=== PATIENT | female | born 1985 | race Two or more races ===

== ENCOUNTER → 2017-05-29 | Emergency (ER) | payer OTHER ==
[~2017-05-29] VITALS: Ht 170.2 cm; Wt 67.1 kg
[~2017-05-29] MED LIST: CLONAZEPAM2 MG PO; GARAMYCIN OPHT3.5 GM OP; HM EYE DROPS RE15 ML OP; METOPROLOL SUCC50 MG PO
== END | disposition home or self-care (01) ==
LOC: ER 01:50
DX: H18.821 Corneal disorder due to contact lens, right eye (principal)

== ENCOUNTER 2018-03-21 05:22 | Emergency (ER) | payer OTHER ==
[~2018-03-21] VITALS: Ht 170.2 cm; Wt 68.0 kg
[2018-03-21] MEDS ORDERED: CAPACET CAPSUL1 EACH PO (07:51)
== END 2018-03-21 08:06 | disposition home or self-care (01) ==
LOC: ER 05:22
DX: S00.83XA Contusion of other part of head, initial encounter (principal); W18.09XA Striking against other object with subsequent fall, initial encounter; Y93.89 Activity, other specified; Y92.098 Other place in other non-institutional residence as the place of occurrence of the external cause; Y99.8 Other external cause status; G44.209 Tension-type headache, unspecified, not intractable; N91.2 Amenorrhea, unspecified

== ENCOUNTER 2018-03-24 17:57 | Emergency (ER) | payer OTHER ==
[~2018-03-24] VITALS: Ht 170.2 cm; Wt 68.0 kg
[~2018-03-24 17:57] MED LIST changes: +CAPACET CAPSUL1 EACH PO
== END 2018-03-24 20:56 | disposition home or self-care (01) ==
LOC: ER 17:57
DX: S00.83XA Contusion of other part of head, initial encounter (principal); W18.39XA Other fall on same level, initial encounter; Y93.89 Activity, other specified; Y92.89 Other specified places as the place of occurrence of the external cause; Y99.8 Other external cause status